=== PATIENT | female | born 1985 | race Caucasian/White ===

== ENCOUNTER 2020-11-29 14:29 | Emergency (ER) | payer OTHER, SELFPAY ==
[2020-11-29 14:29] VITALS: BP 127/71; PULSE 102; RESP 21; TEMP 36.7; O2SAT 100
--- NOTE | 2020-11-29 14:37 | ED.GENADULT ---
HPI - General Adult General Chief complaint: Extremity Injury, Lower Stated complaint: BACK PAIN History of Present Illness HPI narrative: Patient is a otherwise healthy who comes to the emergency room today complaining of low back pain radiating down the posterior aspect of left leg. She has been having numbness and tingling in her left foot. Patient says that she has a history of back issues. In 2008 she had some atraumatic back pain that she did end up getting an MRI on and was treated successfully with physical therapy. The pain flared back up on her earlier this year and it was radiating down her left leg at that point, she was seen by her primary care physician and was treated with some steroids which she finished off about 3 weeks ago and she has undergone physical therapy. She has received a lumbar x-ray recently which was normal per patient. Symptoms have been continuing to improve however she sneezed earlier today while in the shower and she felt a sudden spasm in her back radiating down her left leg. She denies any saddle paresthesia, denies any bowel or bladder symptoms, denies any fevers. She had to call EMS because she was having trouble ambulating, received some Toradol in route and reports that this is helping. Denies any chance of . Laying on her left side with her right hip flexed is the most comfortable Related Data Allergies Allergy/AdvReac Type Severity Reaction Status Date / Time cefaclor Allergy Unknown Rash Verified 11/29/20 14:37 Review of Systems Review of Systems: All systems reviewed & are unremarkable except as noted in HPI and below [facility] Family History Family History (Updated 10/09/16 @ 13:34 by DOCTOR UNKNOWN) Mother Hypertension Father Family history of malignant melanoma Other Cerebrovascular accident Family history of chronic obstructive pulmonary disease Family history of congestive heart failure Social History Social History Smoking status: Never smoker Alcohol intake: current Exam Narrative: Exam Narrative: Pleasant, uncomfortable appearing Const: General: cooperative, no acute distress and well developed HENMT: Head: normal to inspection Eyes: Pupils: Equal, round and reactive pupils present Neck: Neck: normal visual inspection and full ROM Chest: Chest palpation & inspection: normal inspection of the chest Resp: Effort & Inspection: normal respiratory effort Auscultation: clear to auscultation bilaterally Cardio: Rate: regular rate Rhythm: regular rhythm GI: Inspection: normal to inspection GI Palp: No abdominal tenderness Skin: General skin exam: normal color Extrem: Other: Low back is nontender to palpate diffusely. No tenderness palpation over either extremities. Slightly decreased sensation over left foot, otherwise sensation is equal and intact throughout. Normal deep tendon reflexes throughout. Normal strength throughout both lower extremities. Positive straight leg raise test on the left, negative on the right. Psych: Appearance: grossly normal Course Reevaluation(s) Reevaluation #1: Rechecked patient. She is still having some pain but it is better and she feels comfortable going home. Explained to patient that the next couple days she would likely not be able to do much. She says that she has a good social support system and is comfortable with that. Discussed with patient my concern about disc injury. Discussed conservative management and follow-up with PCP for further evaluation and care. Patient agreeable. Date: 11/29/20 Time: 16:25 Vital Signs Vital signs: Vital Signs Temperature 36.7 C 11/29/20 14:29 Pulse Rate 102 H 11/29/20 14:29 Respiratory Rate 21 H 11/29/20 14:29 Blood Pressure 127/71 11/29/20 14:29 Pulse Oximetry 100 11/29/20 14:29 Temperature 36.7 C 11/29/20 14:29 Pulse Rate 102 H 11/29/20 14:29 Respiratory Rate 21 H 11/29/20 14:29 Blood Pressure 127/71 11/29/20 14:29 Pulse
[2020-11-29] MEDS: ONDANSETRON INJ 4 MG/2 ML VIAL IV PUSH (15:22)
[2020-11-29] MEDS: methylPREDNISolone SOD SUCC 125 MG VIAL IV PUSH (15:22)
[2020-11-29] MEDS: oxyCODONE/ACETAMINOPHEN (*CRX) 5-325 MG TABLET 2 TABLET PO (15:29)
== END 2020-11-29 16:49 | disposition home or self-care (01) ==
PROVIDERS: Emergency Provider Emergency Medicine; PCP Registered Nurse
DX: M54.32 Sciatica, left side (principal)
CPT/HCPCS: 96374; 96375; 99284; A9270; J2405; J2930

== ENCOUNTER → 2020-12-08 10:49 | Outpatient (CLI) | payer OTHER, SELFPAY ==
--- NOTE | ~2020-12-08 | MR_ITS ---
EXAMINATION: MR lumbar spine wo [facility] EXAM DATE: 12/08/2020 11:35 INDICATION: Chronic left-sided low back pain. Left leg pain. TECHNIQUE: Multi-sequential, multiplanar MR images of the lumbar spine were obtained without contrast . Sagittal T1, T2, T2 fat saturation images. Axial T2 weighted images. There is no prior study for comparison. FINDINGS: There are no suspicious marrow signal abnormalities. There is 3 mm retrolisthesis L4 on L5 and 2 mm retrolisthesis L5 on S1. There is mild to moderate loss of both of these disc heights. The v ertebral body and disc heights are otherwise well maintained. The vertebral bodies are otherwise al igned. The conus medullaris terminates at the T12-L1 level and has normal signal intensity and morph ology. Level by level evaluation: T12-L1: Disc does not extend beyond the endplate margin. Facet arthropathy: None. Neural foraminal stenosis: No stenosis. Central canal stenosis: No stenosis. L1-L2: Disc does not extend beyond the endplate margin. Facet arthropathy: Mild. Neural foraminal stenosis: No stenosis. Central canal stenosis: No stenosis. L2-L3: Disc does not extend beyond the endplate margin. Facet arthropathy: Mild. Neural foraminal stenosis: No stenosis. Central canal stenosis: No stenosis. L3-L4: Disc does not extend beyond the endplate margin. Facet arthropathy: Mild to moderate. Neural foraminal stenosis: No stenosis. Central canal stenosis: No stenosis. L4-L5: There is a mild to moderate diffuse disc bulge. Facet arthropathy: Mild to moderate. Neural foraminal stenosis: Mild bilateral. Central canal stenosis: Mild. L5-S1: There is a mild to moderate diffuse disc bulge superimposed moderate-sized left central extrus ion, inferior migration, narrowing the left lateral recess. Facet arthropathy: Mild to moderate. Neural foraminal stenosis: Mild bilateral. Central canal stenosis: Mild to moderate, particularly left lateral recess. IMPRESSION: L5-S1 left central extrusion into the lateral recess causing mass effect on traversing S1 nerve root. Correlate clinically for muscle weakness of plantar flexion, sensory change of the later al foot and small toe, and depressed ankle reflex. Reviewed, dictated and finalized at location A. IMPRESSION: L5-S1 left central extrusion into the lateral recess causing mass e ffect on traversing S1 nerve root. Correlate clinically for muscle weakness of plantar flexion, sensory change of the lateral foot and small toe, and depresse d ankle reflex.
== END ==
PROVIDERS: Visit Provider Registered Nurse
DX: M54.42 Lumbago with sciatica, left side (principal); G89.29 Other chronic pain; M54.16 Radiculopathy, lumbar region; M51.27 Other intervertebral disc displacement, lumbosacral region
CPT/HCPCS: 72148

== ENCOUNTER 2022-02-26 12:42 | Outpatient (CLI) | payer OTHER, SELFPAY ==
--- NOTE | 2022-02-26 13:55 | WPDPFTINT ---
PFT Procedure Performed PFT Procedure Performed Spirometry with Pre/Post Bronchodilator Plethysmography (Lung Vol) Diffusing Cap (DLCO) Flow Vol Loop PFT Interpretation Lung volumes were measured with the body plethysmography method. Lung volumes are unremarkable. Spirometry showed normal expiratory flow rates and a normal FEV1 to FVC ratio of 89%. Following administration of a bronchodilator there was significant increase in the expiratory flow rates. Lung diffusion capacity is within the normal range at 84% predicted. Airway resistance is elevated at over 460% predicted. Impression: Spirometry, lung volumes, and lung diffusion capacity all within normal range. Significant response to bronchodilators on this testing may suggest underlying obstructive airway disease. Clinical correlation advised.
== END 2022-02-26 12:43 | disposition home or self-care (01) ==
LOC: ANHPFT 12:43
PROVIDERS: PCP Registered Nurse; Visit Provider Registered Nurse
DX: J45.20 Mild intermittent asthma, uncomplicated (principal)
CPT/HCPCS: 94060; 94726; 94729

== ENCOUNTER 2022-07-29 18:26 | Emergency (ER) | payer OTHER, SELFPAY ==
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
[2022-07-29 19:02] VITALS: BP 136/94; PULSE 83; RESP 16; TEMP 36.6; O2SAT 100
== END 2022-07-29 19:30 | disposition home or self-care (01) ==
PROVIDERS: Emergency Provider Nurse Practitioner Family; PCP Registered Nurse
DX: S39.012A Strain of muscle, fascia and tendon of lower back, initial encounter (principal); V49.40XA Driver injured in collision with unspecified motor vehicles in traffic accident, initial encounter; M54.32 Sciatica, left side; J45.909 Unspecified asthma, uncomplicated
CPT/HCPCS: 99213; G0463

== ENCOUNTER 2022-09-09 17:47 | Emergency (ER) | payer OTHER, SELFPAY ==
[2022-09-09 17:57] VITALS: BP 129/82; PULSE 84; RESP 16; TEMP 36.6; O2SAT 100
--- NOTE | 2022-09-09 18:02 | ED.URI ---
HPI - URI/Sore Throat General Chief Complaint: Upper Respiratory Infection Stated Complaint: sore throat Time Seen by Provider: 09/09/22 18:00 History of Present Illness HPI Narrative: 37 y/o female presented for c/o sore throat intermittently for 2 days. Reports mild headache and hot flashes. States her and children tested positive for strep throat last week and have been taking abx. She denies cough, sinus drainage, sob, wheezing, n/v/d/f/c. Not taking anything for symptoms. Related Data Home Medications Medication Instructions Recorded Confirmed norethindrone (contraceptive) 0.35 0.35 mg PO DAILY 07/29/22 09/09/22 mg tablet Allergies Allergy/AdvReac Type Severity Reaction Status Date / Time cefaclor Allergy Unknown Rash Verified 09/09/22 18:03 Review of Systems Review of Systems: CONSTITUTIONAL: Denies body aches, fever, chills, or sweats. EYES: Denies visual changes, redness, or discharge. ENT: Denies rhinorrhea, congestion, or otalgia. CARDIOVASCULAR: Denies chest pain, palpitations, or edema. RESPIRATORY: Denies dyspnea. GASTROINTESTINAL: Denies abdominal pain, nausea, vomiting, or diarrhea. SKIN: Denies rash, itching, or wounds. MUSCULOSKELETAL: Denies back pain, joint pain, or myalgia. [facility] Family History Family History Mother Hypertension Father Family history of malignant melanoma Other Cerebrovascular accident Family history of chronic obstructive pulmonary disease Family history of congestive heart failure Social History Social History Smoking status: Never smoker Alcohol intake: current Gender identity (if verbalized by the patient): Female Exam Narrative: GENERAL: well-appearing, no acute distress. EYES: conjunctivae clear ENT: Mucous membranes moist. TMs pearly gama with normal light reflex bilaterally; no tragal tenderness. Oropharynx erythematous without lesions. Tonsils absent. No drooling, no hoarseness, no trismus, uvula midline. No tripod positioning, hot potato voice, or soft palate swelling. NECK: Supple. No lymphadenopathy CHEST: Clear to auscultation, breath sounds equal. HEART: Regular rate and rhythm. No murmur heard. SKIN: Warm, dry, no rash. NEURO: Alert and oriented x3. Course Course Emergency Course: Patient is aware of diagnosis, understands and agrees to treatment plan. Anticipatory guidance given. Patient agrees to follow-up as directed and is aware of reasons to seek care at the emergency department. Portions of this record may have been created with voice recognition software Level of Care: Express Care Visit Vital Signs Vital signs: Vital Signs Temperature 97.8 F 09/09/22 17:57 Pulse Rate 84 09/09/22 17:57 Respiratory Rate 16 09/09/22 17:57 Blood Pressure 129/82 09/09/22 17:57 Pulse Oximetry 100 09/09/22 17:57 Oxygen Delivery Room Air 09/09/22 17:57 Temperature 97.8 F 09/09/22 17:57 Pulse Rate 84 09/09/22 17:57 Respiratory Rate 16 09/09/22 17:57 Blood Pressure 129/82 09/09/22 17:57 Pulse Oximetry 100 09/09/22 17:57 Oxygen Delivery Room Air 09/09/22 17:57 MDM - URI/Sore Throat MDM Narrative Medical decision making narrative: Provided abx based on known exposure and cc. Limited resources, unable to test for strep at this time. Advise supportive treatments. Patient is appropriate for outpatient treatment and follow-up. Differential Diagnosis Differential diagnosis: Likely upper respiratory infection, viral infection and pharyngitis Discharge Plan Discharge Clinical Impression: Pharyngitis Patient Disposition: Home, Self-Care Condition: Stable Instructions: Antibiotic Form, Pharyngitis (ED) Additional Instructions: - Take the antibiotic as directed. Fever and sore throat typically resolve within one to three days. Most patients can return to wor
== END 2022-09-09 18:12 | disposition home or self-care (01) ==
PROVIDERS: Emergency Provider Nurse Practitioner Family; PCP Registered Nurse
DX: J02.9 Acute pharyngitis, unspecified (principal); J45.909 Unspecified asthma, uncomplicated
CPT/HCPCS: 99213; G0463